=== PATIENT | female | born 1990 | race Caucasian/White ===

== ENCOUNTER → 2016-12-21 | Outpatient (CLI) | payer OTHER ==
[~2016-12-21] MED LIST: CEPALOZ PO; ERYT.5%O OU; IBUP-232 PO; PENI500T PO; SPRI28TA PO; Z.0.BCPILL PO
[2016-12-21 18:42] LABS: C. DIFF EPI 027 PRESUMPTIVE NEGATIVE (NEGATIVE); C. DIFF TOXIN PCR NEGATIVE (NEGATIVE)
== END ==
LOC: CLAB 12:28
PROVIDERS: ATTEND Family Medicine
DX: R19.2 Visible peristalsis (principal)
CPT/HCPCS: 87205; 87328; 87329; 87493; 87506

== ENCOUNTER → 2017-08-01 | Outpatient (CLI) | payer OTHER ==
[~2017-08-01] MED LIST changes: -CEPALOZ PO; -ERYT.5%O OU; -IBUP-232 PO; +LORA-400 PO; +MULTTAB67 PO; -PENI500T PO; -SPRI28TA PO; -Z.0.BCPILL PO
[2017-08-01 08:46] LABS: HEMATOCRIT 36.1 % (35.0-46.0); MEAN CELL VOLUME 80.5 FL (80.0-100.0); MEAN CORPUSCULAR HEMOGLOBIN 26.5 PG (27.0-34.0); MEAN CORPUSCULAR HGB CONC 32.9 % (32.0-36.0); PLATELET COUNT 182 TH/MM3 (150-450); RED BLOOD COUNT 4.48 MIL/MM3 (4.00-5.30); RED CELL DISTRIBUTION WIDTH 15.3 % (11.6-17.2); REVIEW FLAG FINAL; WHITE BLOOD COUNT 7.3 TH/MM3 (4.0-11.0)
== END ==
LOC: CLAB 08:13
PROVIDERS: ATTEND Family Medicine
DX: R53.83 Other fatigue (principal)
CPT/HCPCS: 36415; 84443; 85027

== ENCOUNTER → 2017-08-11 | Outpatient (CLI) | payer OTHER ==
[2017-08-11 10:47] LABS: FREE T3 2.52 PG/ML (2.18-3.98); FREE T4 0.9 NG/DL (0.76-1.46)
== END ==
LOC: CLAB 09:27
PROVIDERS: ATTEND Family Medicine
DX: R53.83 Other fatigue (principal)
CPT/HCPCS: 36415; 84439; 84443; 84481